=== PATIENT | female | born 1985 | race Caucasian/White ===

== ENCOUNTER 2021-08-14 14:28 | Outpatient (CLI) | payer BC, SELFPAY ==
--- NOTE | ~2021-08-14 | CT_ITS ---
EXAMINATION: CT sinus wo con DATE: 08/14/2021 14:49 INDICATION: Cough. Chronic congestion, chronic sinusitis for years. History of sinus surgery. TECHNIQUE: Computed tomography (CT) of the paranasal sinuses was performed without contrast. Iterativ e reconstruction technique was employed. Exam dose: 288.76 mGy-cm total exam DLP. COMPARISON: None FINDINGS: There is prominent rightward deviation of the nasal septum. The nasal turbinates are modera tely prominent and symmetric in size. The frontal sinuses are normally developed and aerated. There is an isolated opacified anterior left ethmoid air cell. The ethmoid air cells are otherwise unremarkable. There is slight focal mucoperiosteal thickening in the inferolateral aspect of the left sphenoid sinu s. The sphenoid sinuses are otherwise unremarkable. There is a 10.7 mm polyp or mucous retention cyst along the lower anterior wall of the right maxillar y antrum. There is a huge polyp or mucous retention cyst of left maxillary sinus, measuring up to 3.8 cm vertic al and 2.3 cm transverse dimension. There is a large left nasal antral window, including resection of the uncinate process and upper medial wall of the left maxillary sinus. With wide communication to t he middle meatus.. The right ostiomeatal unit is patent. The mastoid air cells are normally developed and aerated. IMPRESSION: Prominent rightward deviation of nasal septum Large left nasal antral window Huge left maxillary sinus mucous retention cyst or polyp Small mucus retention cyst or polyp in the floor of the right maxillary sinus. Isolated single left anterior ethmoid air cell opacification Slight focal new comparison thickening of the left sphenoid sinus Reviewed, dictated and finalized at [facility]. Reviewed, dictated and finalized at [facility].
== END 2021-08-14 14:29 | disposition home or self-care (01) ==
LOC: ANHIMG 14:35
PROVIDERS: PCP Nurse Practitioner Family; Visit Provider Nurse Practitioner Family
DX: J32.9 Chronic sinusitis, unspecified (principal); J34.2 Deviated nasal septum
CPT/HCPCS: 70486